=== PATIENT | female | born 1995 | race African-American/Black ===

== ENCOUNTER 2019-07-23 23:04 | Emergency (ER) | payer MEDICAID ==
[~2019-07-23] VITALS: Ht 160 cm; Wt 65.8 kg
[2019-07-24 00:05] LABS: Urine Bacteria FEW /hpf (None Seen); Urine Blood TRACE /uL (Negative); Urine Mucus FEW (None Seen); Urine Specific Gravity 1.023 (1.001-1.035); Urine WBC 16 /hpf (0 - 5)
[2019-07-24 02:12] VITALS: BP 141/76
== END 2019-07-24 02:31 | disposition home or self-care (01) ==
LOC: ER 23:04
DX: Z32.01 Encounter for pregnancy test, result positive (principal); N39.0 Urinary tract infection, site not specified
CPT/HCPCS: 81001; 81025

== ENCOUNTER → 2019-07-24 | Emergency (ER) | payer MEDICAID ==
[~2019-07-24] VITALS: Ht 160 cm; Wt 65.8 kg
[2019-07-24 12:10] LABS: Basophils # (auto) 0 10 ^3/uL (0-0.2); Eosinophils # (auto) 0 10 ^3/uL (0-0.8); Mean Corpuscular Hemoglobin 25.2 pg (28.0-32.0); Monocytes % (auto) 8.3 % (0.0-12.0)
[2019-07-24 12:14] LABS: Basophils % (auto) 0.2 % (0.0-2.0); Eosinophils % (auto) 0.3 % (0.0-7.0); Hematocrit 39.2 % (36.0-46.0); Hemoglobin 12.7 g/dL (12.2-16.2); Lymphocytes # (auto) 1.6 10 ^3/uL (0.4-5.4); Lymphocytes % (auto) 13.3 % (10.0-50.0); Mean Corpuscular Hgb Conc. 32.4 g/dL (32.0-36.0); Mean Corpuscular Volume 77.9 fL (80.0-100.0); Neutrophils # (auto) 9.1 10 ^3/uL (1.6-8.6); Neutrophils % (auto) 77.9 % (37.0-80.0); Platelet Count (auto) 259 10^3/uL (140-450); Red Blood Cells 5.03 10^6/uL (4.0-5.20); Red Cell Distribution Width 19.2 % (11.8-14.3); White Blood Cell 11.7 10^3/uL (4.4-10.8)
[2019-07-24 14:30] VITALS: BP 132/80
== END | disposition home or self-care (01) ==
LOC: ER 11:18
DX: O20.0 Threatened abortion (principal); Z3A.01 Less than 8 weeks gestation of pregnancy
CPT/HCPCS: 36415; 76801; 76817; 84702; 85025

== ENCOUNTER 2019-07-26 10:54 | Emergency (ER) | payer MEDICAID ==
[~2019-07-26] VITALS: Ht 160 cm; Wt 65.8 kg
[2019-07-26 12:56] VITALS: BP 140/80
== END 2019-07-26 12:59 | disposition home or self-care (01) ==
LOC: ER 10:54
DX: O20.0 Threatened abortion (principal); Z3A.01 Less than 8 weeks gestation of pregnancy
CPT/HCPCS: 36415; 84702

== ENCOUNTER → 2019-10-13 | Emergency (ER) | payer MEDICAID ==
[~2019-10-13] VITALS: Ht 160 cm; Wt 67.1 kg
[2019-10-13 15:42] LABS: Urine Bacteria NONE SEEN /hpf (None Seen); Urine Blood TRACE /uL (Negative); Urine Mucus FEW (None Seen); Urine Specific Gravity 1.009 (1.001-1.035); Urine WBC 1 /hpf (0 - 5)
[2019-10-13 18:05] VITALS: BP 125/72
== END | disposition home or self-care (01) ==
LOC: ER 14:59
DX: O44.01 Complete placenta previa NOS or without hemorrhage, first trimester (principal); Z3A.01 Less than 8 weeks gestation of pregnancy
CPT/HCPCS: 36415; 76805; 81001; 84702